=== PATIENT | female | born 1965 | race Caucasian/White ===

== ENCOUNTER 2019-07-31 10:45 | Day surgery (SDC) ==
[2019-07-27 08:49] LABS: HEMATOCRIT 41.1 % (37.0-47.0); HEMOGLOBIN 13.6 g/dL (12.0-16.0); MCHC 33.1 g/dL (33-37); MCV 84.6 FL (81-99); MPV 10.6 FL (7.4-10.4); RBC 4.86 XMIL (4.2-5.4); RDW 13.3 % (11.5-14.5); WBC 5.56 X1000 (4.8-10.8)
[2019-07-27 08:55] LABS: INR 1.09; PROTIME 14.2 Seconds (11.0-16.0)
[2019-07-27 08:56] LABS: PTT 40.5 Seconds (22.3-41.8)
[2019-07-27 09:11] LABS: AGAP 9; BUN 10 mg/dL (8-22); CALCIUM 9.7 mg/dL (8.8-10.2); CHLORIDE 105 mmol/L (98-107); COSMO 280; CREATININE 0.8 mg/dL (0.5-0.9); ESTIMATED GFR > 60; GLUCOSE 93 mg/dL (70-104); POTASSIUM 4.4 mmol/L (3.5-5.1); SODIUM 141 mmol/L (136-145); TCO2 27 mmol/L (25-35)
--- NOTE | 2019-07-31 07:43 | HISTORY AND PHYSICAL ---
HISTORY OF PRESENT ILLNESS: A 53-year-old female with history of cystocele, vaginal wall prolapse and hematuria as well as rectocele. She reports history of stress urine incontinence as well. She underwent evaluation with renal ultrasound on 07/12/2019 revealing no evidence of upper pathology. She had cystourethroscopy 07/09/2019 which was unremarkable. She feels that her cystocele has worsened and desires to have it addressed. She was counselled on vaginal vault suspension, and sling placement. PAST MEDICAL HISTORY: 1. Rheumatoid arthritis. 2. Obesity. 3. Urethral stricture. 4. Chronic UTIs. 5. Reactive airway disease. PAST SURGICAL HISTORY: 1. Tonsillectomy. 2. Gastric bypass. HOME MEDICATIONS: 1. Meloxicam. 2. Sonata. ALLERGIES: Naproxen. SOCIAL HISTORY: He denies tobacco or illicit drug use. Occasional alcohol use. FAMILY HISTORY: Positive for breast cancer and colorectal cancer. PHYSICAL EXAMINATION: GENERAL: No acute distress. HEENT: Normocephalic, atraumatic. CARDIOVASCULAR: Regular rate and rhythm. PULMONARY: Bilateral breath sounds. ABDOMEN: Nontender, protuberant nondistended. GENITOURINARY: Atrophic vaginitis, grade 3 cystocele. Vaginal vault prolapse noted to the level of introitus and grade 2 rectocele. ASSESSMENT/PLAN: A 53-year-old female with pelvic organ prolapse who has symptomatic cystocele and history of stress urine incontinence. We discussed cystocele repair with extraperitoneal vaginal vault suspension. We discussed different approaches including nonsurgical intervention with pessary, primary repair, graft assisted repair and mesh assisted repair. We discussed that mesh assisted repair is only available the abdominal approach, and given her history of gastric bypass, vaginal approach would be more optimal. We discussed pros and cons of primary versus graft assisted repair. She wants to proceed with the latter. Risks of the procedure including, but not limited to, bleeding, infection, injury to adjacent structures, failure of graft to reduce this in the long-term and need for additional interventions as well as pelvic pain, urinary retention and dyspareunia were explained. We also discussed placement of Altis mid urethral sling given her history of stress urinary incontinence and possibility of recurrence of incontinence with bladder repair. We discussed the sling was made out of mesh. We discussed risks of the procedure including, but not limited to, bleeding, infection, injury to the urethra, injury to adjacent structures, urinary retention, dyspareunia, failure of sling to correct stress urine incontinence and problems associated with mesh, including but not limited to rejection and infection which may necessitate removal of the sling were explained. Ms. Cooper voiced understanding and wants to proceed. PLAN: Cystocele repair with axis dermis extraperitoneal vaginal vault suspension, Altis mid urethral sling, cystoscopy. cc: Jak Carvalho MD
[2019-07-31] MEDS ORDERED: XYLOCAINE-MPF 2% ONE (10:48)
[2019-07-31] MEDS ORDERED: DIPRIVAN 1% ONE (10:48)
[2019-07-31] MEDS ORDERED: LR 1,000 ML ONE (10:54)
[2019-07-31] MEDS ORDERED: REGLAN ONE (10:54)
[2019-07-31] MEDS ORDERED: PEPCID ONE (10:54)
[2019-07-31] MEDS ORDERED: KEFZOL 1 GM/D5W 2 GM/100 ML IVPB ONE (10:54)
[2019-07-31] MEDS ORDERED: METROGEL-VAGINAL 0.75% GEL ONE (10:55)
[2019-07-31] MEDS ORDERED: SENSORCAINE 0.5%-EPI 1:200,000 ONE (10:56)
[2019-07-31] MEDS ORDERED: SODIUM CHLORIDE 0.9% ONE (10:56)
[2019-07-31] MEDS ORDERED: BACITRACIN ONE (10:56)
[2019-07-31] MEDS ORDERED: GENTAMICIN ONE (11:40)
[2019-07-31] MEDS ORDERED: TRANSDERM-SCOP ONE (11:46)
[2019-07-31] MEDS ORDERED: DECADRON ONE (12:13)
[2019-07-31] MEDS ORDERED: OFIRMEV 1000 MG/ISOTONIC SOLN 1,000 MG/100 ML BOTTLE ONE (12:13)
[2019-07-31] MEDS ORDERED: ZOFRAN ONE (12:13)
[2019-07-31] MEDS ORDERED: DILAUDID ONE (12:28)
[2019-07-31] MEDS ORDERED: QUELICIN (DOSE) ONE (12:33)
[2019-07-31] MEDS ORDERED: ROBINUL ONE (12:47)
[2019-07-31] MEDS ORDERED: EPHEDRINE ONE (13:00)
[2019-07-31] MEDS ORDERED: NS 1,000 ML ONE (14:00)
[2019-07-31] MEDS ORDERED: SALINE LOCK IV FLUID XX ONE (15:05)
[2019-07-31] MEDS ORDERED: MORPHINE IV PRN (15:10)
[2019-07-31] MEDS ORDERED: DILAUDID IV PRN (15:15)
[2019-07-31] MEDS ORDERED: PHENERGAN PR PRN (15:15)
[2019-07-31] MEDS ORDERED: DITROPAN PO PRN (15:15)
[2019-07-31] MEDS ORDERED: PHENERGAN PO PRN (15:15)
[2019-07-31] MEDS ORDERED: LABETALOL IV PRN (15:15)
[2019-07-31] MEDS ORDERED: NORCO-5 PO PRN (15:15)
[2019-07-31] MEDS ORDERED: ZOFRAN IV PRN (15:15)
[2019-07-31] MEDS ORDERED: SODIUM CHLORIDE 0.9% INJ PRN (15:15)
[2019-07-31] MEDS ORDERED: NORCO-7.5 PO PRN (15:15)
[2019-07-31] MEDS ORDERED: PHENERGAN IV PRN (15:15)
[2019-07-31] MEDS: NS 1,000 ML IV SCH (16:47)
[2019-07-31] MEDS: KEFZOL 2 GM/D5W 2 GM/50 ML IVPB IV SCH (17:43)
[2019-07-31] MEDS: NORCO-10 PO PRN ×2 (18:15→23:12)
[2019-07-31] MEDS ORDERED: AMBIEN PO PRN (18:55)
[2019-07-31 22:37] LABS: URINE SOURCE CATH
[2019-07-31 22:42] LABS: BILIRUBIN URINE NEGATIVE (NEGATIVE); BLOOD URINE NEGATIVE (NEGATIVE); COLOR STRAW; GLUCOSE URINE NEGATIVE (NEGATIVE); KETONE URINE NEGATIVE (NEGATIVE); LEUKOCYTES URINE NEGATIVE (NEGATIVE); NITRITE URINE NEGATIVE (NEGATIVE); PROTEIN URINE NEGATIVE (NEGATIVE); SP GRAVITY URINE 1.014; TURBIDITY URINE CLEAR (CLEAR); UROBILINOGEN URINE NORMAL (NORMAL)
[2019-07-31 22:43] LABS: UR EPITHELIAL CELLS <10 /HPF (<10); URINE BACTERIA NEGATIVE /HPF; URINE RBC <10 /HPF (<10); URINE WBC <10 /HPF (<10)
[2019-07-31] MEDS: COLACE PO SCH (23:11)
[2019-07-31] MEDS: PERIDEX MT SCH (23:12)
[2019-08-01] MEDS: NS 1,000 ML IV SCH (00:01)
[2019-08-01] MEDS: KEFZOL 2 GM/D5W 2 GM/50 ML IVPB IV SCH ×2 (01:33→10:05)
[2019-08-01] MEDS: NORCO-10 PO PRN ×2 (08:14→13:31)
[2019-08-01] MEDS ORDERED: VITAMIN D PO SCH (09:00)
[2019-08-01] MEDS ORDERED: FOLIC ACID PO SCH (09:00)
[2019-08-01] MEDS ORDERED: PATIENT'S OWN MED PO SCH (09:00)
[2019-08-01] MEDS ORDERED: SINGULAIR PO SCH (09:00)
[2019-08-01] MEDS: COLACE PO SCH (10:02)
[2019-08-01] MEDS: PERIDEX MT SCH (10:03)
[2019-08-01 11:54] VITALS: BP 114/51
--- NOTE | 2019-08-03 04:10 | OPERATIVE NOTE ---
PROCEDURE DATE: 07/31/2019 SURGEON: Jak Carvalho MD PREOPERATIVE DIAGNOSES: 1. Cystocele. 2. Vaginal vault prolapse. 3. History of stress urine incontinence. 4. Atrophic vaginitis. POSTOP DIAGNOSIS: 1. Cystocele. 2. Vaginal vault prolapse. 3. History of stress urine incontinence. 4. Atrophic vaginitis. PROCEDURE: 1. Cystocele repair with [place] dermis. 2. Extraperitoneal vaginal vault suspension. 3. Placement of Altis midurethral sling. 4. Cystourethroscopy x2. INDICATION: 53-year-old female with history of gastric bypass who has developed symptomatic cystocele. She also has had a history of microscopic hematuria, recurrent UTIs and stress urine incontinence. She underwent evaluation with ultrasound cystoscopy which were unremarkable. She desires to have her cystocele repaired and vaginal vault suspended. We discussed that given her stress urine incontinence, she may have de leia stress incontinence upon cystocele reduction and she wants to proceed with Altis midurethral sling as well. FINDINGS: 8 x 12 cm [place] dermis graft was used and trimmed to accommodate the patient's anatomy. Cystourethroscopy after cystocele repair showed no evidence of injury to the bladder, urethra and bilateral clear efflux. Cystourethroscopy after Altis sling placement showed no evidence of urethral or bladder injury and bilateral clear ureteral efflux. The graft appeared to lay off tension without redundancy at the conclusion of the case. DESCRIPTION OF PROCEDURE: After obtaining informed consent, patient was brought to the operating room. Perioperative antibiotics and laryngeal mask anesthesia were administered. She was placed in lithotomy position with upper and lower extremities appropriately padded. She was prepped and draped sterile fashion. A 16-[place] Rae catheter was introduced and bladder was drained. The colorectal retractor was used for exposure. We placed 2 Allis clamp one at the level of bladder neck as evident by palpation of the Rae balloon and 2nd one at her cervix. 40 mL of 0.5% Marcaine with epinephrine diluted 50:50 with normal saline were then introduced for hydrodissection and local anesthetic in the space between the 2 Allis clamps. We then made an incision with 15 blade from the bladder neck to the vaginal apex. Metzenbaum scissors were then used to dissect full-thickness vaginally until the bladder was from the anterior vaginal wall. Metzenbaum scissors and eventually surgeon's finger was used to free up the bladder laterally until sacrospinous ligament was palpable and space was freed up approximately 2 cm medial to the ischial spine on both sides. Metzenbaum scissors were used to dissect the anterior vaginal wall to the level of bladder neck and then posteriorly to the level of vaginal apex. 2-0 PDS suture x2 was placed at the vaginal apex and secured with hemostat. We then used Anchorsure device to place the PDS sutures through sacrospinous ligament bilaterally approximately 2 cm medial to the ischial spine. They were secured with hemostat. I then opened up 8 cm x 12 cm [place] dermis graft and soaked it in normal saline for approximately 5 minutes. We trimmed the graft to accommodate the patient's anatomy. We then used free needles to thread previously placed Anchorsure sutures through the posterior arms of the graft and previously placed 2-0 PDS sutures at the midline posterior aspect of the mesh to secure it to the vaginal apex. The sutures were then tightened down and the graft appeared to lie snugly against the bladder without overt redundancy and without significant tension. I then used 2-0 PDS suture and placed it through the anterior arms of the graft as well as the obturator membrane bilaterally. Those sutures were tightened up as well. The graft still appeared to lie flat without redundancy elevating the bladder. I then placed 2 interrupted 2-0 PDS sutures securing the midline anterior portion of the graft to the bladder neck area. Following that wound was copiously irrigated. We removed Rae catheter and performed cystourethroscopy with 70-degree lens. It revealed no evidence of urethral injury,. no evidence of bladder injury and bilateral clear ureteral efflux. The cystoscope was then removed and Rae catheter was replaced with 10 mL of sterile water introduced in the balloon. The wound was copiously irrigated and 2-0 Vicryl suture was used to reapproximate vaginal epithelium in a running fashion locking every 3rd suture. Hemostasis was excellent. Attention was then turned to placement of Altis midurethral sling. 10 mL of 0.5% Marcaine with epinephrine were used to hydrodissection and anesthetize 3 cm of the level of midurethra. Incision was made with 15 blade. Dissection extended through entire vaginal epithelium and periurethral tissues. My little finger was able to palpate obturator membrane. I then opened the sling on the back table and dipped it in normal saline. Adjustable anchor was loosened. We then used helical trocars in inside-out fashion per hotel or motel manager instructions to place the end of the sling on the patient's left side through the obturator membrane and then on the patient's right side. The tension suture was then appropriately adjusted with a hemostat between the sling an the urethra. The sling appeared to lie flat against the urethra without being overly tightened. We then removed Rae catheter and introduced rigid cystoscope with 70-degree lens. Examination of the urethra bladder revealed no evidence of injury to either structure. There was no evidence of sling or suture seen. I was able to visualize bilateral clear ureteral efflux. Following that Rae catheter was reintroduced and I confirmed appropriate sling tightening around the urethra. We then cut the adjusting suture. Wound was copiously irrigated. 3-0 Vicryl suture was used in running fashion to reapproximate the incision. Hemostasis was excellent. Vaginal packing coated with metronidazole was introduced, Rae catheter was connected to gravity drainage bag. She was extubated, taken to PACU further recovery. ESTIMATED BLOOD LOSS: 50 mL. COMPLICATIONS: None. SPECIMENS: None. DRAINS: 16-[place] Rae catheter. DISPOSITION: To PACU and subsequently floor as the patient requested to spend the night with a plan of having her packing removed in the morning, catheter in the morning and discharge if she voids without difficulties. She was already written prescriptions by me for Ultram 50 (#10) and Keflex 500 b.i.d. (#6). cc: Jak Carvalho MD MTDD
== END 2019-08-01 13:45 | disposition home or self-care (01) ==
LOC: 4N 10:45 → OR 10:45
PROVIDERS: ATTEND Urology